=== PATIENT | male | born 1980 | race Caucasian/White ===

== ENCOUNTER 2023-01-10 12:30 | Emergency (ER) | payer BC, OTHER, SELFPAY ==
--- NOTE | ~2023-01-10 | CT_ITS ---
Non-contrast CT scan of the Abdomen and Pelvis Clinical indication: Left flank pain Technique: 2.5 mm axial scans were obtained through the abdomen and pelvis without intravenous or or al contrast. Dose reduction technique was used on this scan by utilizing automated exposure control a nd iterative reconstruction technique. The dose-length product (DLP) was 767.26 mGy-cm. Findings: Images through the lung bases reveal no abnormalities. There is no evidence of renal or ureteral calculi. The kidneys and the ureters are nondilated. The liver, spleen, pancreas, gallbladder, and right adrenal gland appear normal. Small low-density le ft adrenal nodule is consistent with adenoma. There is no aortic aneurysm. There is no evidence of bowel obstruction. Normal appendix. Images through the pelvis were performed. There is no evidence of ascites or lymphadenopathy. Urinary bladder unremarkable. Prostate gland and seminal vesicles are unremarkable. Bilateral L5 pars intera rticularis defects are present, with 9 mm anterolisthesis of L5 over S1. Impression: No acute abnormality. Bilateral L5 pars interarticularis defects, with 9 mm anterolisthesis of L5 over S1. Reviewed, dictated and finalized at [facility]. Impression: No acute abnormality. Bilateral L5 pars interarticularis defects, with 9 mm anterolisthesis of L5 ove r S1.
[2023-01-10 12:33] VITALS: BP 133/63; PULSE 60; RESP 18; TEMP 36.4; O2SAT 98
--- NOTE | 2023-01-10 12:49 | ED.BACK ---
HPI - Back Pain/Injury General Chief Complaint: Back Pain/Injury Stated Complaint: sent from with flank pain Time Seen by Provider: 01/10/23 12:35 History of Present Illness HPI Narrative: 42-year-old male presents to the emergency room for evaluation of left flank pain. Patient states last night he began experiencing left flank pain that was worse with movement. Denies any difficulty urinating. Denies nausea. No history of kidney stones. Related Data Allergies Allergy/AdvReac Type Severity Reaction Status Date / Time doxycycline Allergy Stopped Verified 01/10/23 12:53 Breathing Review of Systems Review of Systems: CONSTITUTIONAL: Denies fever, chills, or sweats. EYES: Denies visual changes, redness, or discharge. ENT: Denies rhinorrhea, congestion, sore throat, or otalgia. CARDIOVASCULAR: Denies chest pain, palpitations, or edema. RESPIRATORY: Denies cough or dyspnea. GASTROINTESTINAL: Reports flank pain GENITOURINARY: Denies dysuria or hematuria. SKIN: Denies rash or itching. MUSCULOSKELETAL: Denies back pain, joint pain, or myalgia. NEUROLOGIC: Denies headache, numbness, dizziness, or weakness. PSYCHIATRIC: Denies anxiety or depression. Exam Narrative: GENERAL: Well-appearing, well-nourished, no physical limitations, and in no acute distress. HEAD: Normocephalic, atraumatic. EYES: Conjunctivae normal, PERRLA and EOMI. CHEST: Clear to auscultation. No respiratory distress. No wheezes rales or rhonchi. HEART: Regular rate and rhythm. No murmur heard. Normal peripheral pulses. ABDOMEN: Soft, nontender, nondistended, normal active bowel sounds. BACK: left CVA tenderness; No cervical/thoracic/lumbar tenderness, step-offs, bony abnormality; FROM EXTREMITIES: Normal range of motion. No edema. No clubbing or cyanosis SKIN: Warm, dry, no rash. No noted wounds NEURO: No focal deficits. Alert and oriented x3. MAEW. CN's II-XI intact bilaterally, normal gait PSYCH: Cooperative. Normal mood and affect. Course Vital Signs Vital signs: Vital Signs Temperature 36.4 C 01/10/23 12:33 Pulse Rate 60 01/10/23 12:33 Respiratory Rate 18 01/10/23 12:33 Blood Pressure 133/63 01/10/23 12:33 Pulse Oximetry 98 01/10/23 12:33 Oxygen Delivery Room Air 01/10/23 12:33 Temperature 36.4 C 01/10/23 12:33 Pulse Rate 60 01/10/23 12:33 Respiratory Rate 18 01/10/23 12:33 Blood Pressure 133/63 01/10/23 12:33 Pulse Oximetry 98 01/10/23 12:33 Oxygen Delivery Room Air 01/10/23 12:33 MDM - Back Pain/Injury MDM Narrative Medical decision making narrative: 42-year-old male presented emergency room for evaluation of left flank pain. CT scan shows no evidence of urolithiasis. Urine and lab studies are unremarkable. Patient likely experiencing muscle spasms in the left lower back. Lab Data 01/10/23 12:48 01/10/23 12:48 Labs: Lab Results 01/10/23 01/10/23 Range/Units 12:48 13:40 WBC 8.3 (4.5-10.0) K/mm3 RBC 5.43 (4.6-6.20) M/mm3 Hgb 16.1 (14.0-18.0) g/dL Hct 45.0 (42.0-52.0) % MCV 82.9 (80-100) fl MCH 29.7 (26-34) pg MCHC 35.8 (32-36) g/dl RDW 11.9 (11.5-14.5) % Plt Count 246 (150-375) k/mm3 MPV 10.5 H (7.4-10.4) fl Immature Gran % (Auto) 0.1 (0-0.5) % Neut % (Auto) 60.9 (45.5-73.1) % Lymph % (Auto) 30.0 (18.3-44.2) % [place] % (Auto) 5.4 (2.6-8.5) % Eos % (Auto) 3.0 (0-4.4) % Baso % (Auto) 0.6 (0.2-1.2) % Lymph # (Auto) 2.49 (0.9-3.2) K/mm3 [place] # (Auto) 0.5 (0.1-0.6) K/mm3 Eos # (Auto) 0.3 (0-0.3) K/mm3 Baso # (Auto) 0.1 (0.0-0.1) K/mm3 Abs Immat Gran (auto) 0.01 (0.00-0.031) K/mm3 Absolute Neuts (auto) 5.1 (1.3-6.7) K/mm3 Absolute Nucleated RBC 0.0 (0.0-0.012) K/mm3 Nucleated RBC % 0.0 (0.0-0.2) % Sodium 138 (137-145) mmol/L Potassium 3.9 (3.4-5.0) mmol/L Chloride 102 (98-107) mmol/L Carbon Dioxide 29 (22-30) mmol/L Anion Gap 7 L
[2023-01-10] MEDS: SODIUM CHLORIDE 0.9% IV 1,000 ML 999 ML IV CONT (12:55)
[2023-01-10 12:59] LABS: Basophils Absolute Auto 0.1 K/mm3 (0.0-0.1); Basophils Percent Auto 0.6 % (0.2-1.2); Eosinophils Absolute Auto 0.3 K/mm3 (0-0.3); Hemoglobin 16.1 g/dL (14.0-18.0); Immature Granulocyte Absolute 0.01 K/mm3 (0.00-0.031); Immature Granulocyte Percent A 0.1 % (0-0.5); Lymphocytes Absolute Auto 2.49 K/mm3 (0.9-3.2); Mean Corpuscular HGB Conc 35.8 g/dl (32-36); Mean Corpuscular Hemoglobin 29.7 pg (26-34); Mean Corpuscular Volume 82.9 fl (80-100); Mean Platelet Volume 10.5 fl (7.4-10.4); Monocytes Absolute Auto 0.5 K/mm3 (0.1-0.6); Monocytes Percent Auto 5.4 % (2.6-8.5); Neutrophils Absolute Auto 5.1 K/mm3 (1.3-6.7); Neutrophils Percent Auto 60.9 % (45.5-73.1); Platelet Count Result 246 k/mm3 (150-375); Red Blood Count 5.43 M/mm3 (4.6-6.20); Red Cell Distribution Width 11.9 % (11.5-14.5); White Blood Count 8.3 K/mm3 (4.5-10.0)
[2023-01-10 13:11] LABS: Alanine Aminotransferase 21 U/L (6-50); Albumin Level 4.7 g/dL (3.5-5.1); Alkaline Phosphatase 60 U/L (38-126); Anion Gap 7 mmol/L (8-16); Aspartate Amino Transferase 26 U/L (17-59); Bilirubin,Total 0.7 mg/dL (0.2-1.3); Blood Urea Nitrogen 17 mg/dL (9-20); Calcium 9.6 mg/dL (8.4-10.2); Carbon Dioxide 29 mmol/L (22-30); Chloride 102 mmol/L (98-107); Estimated CRCL calculation 83 ml/min; Estimated Glomerular Filt Rate > 60; Glucose 107 mg/dL (65-110); Potassium 3.9 mmol/L (3.4-5.0); Sodium 138 mmol/L (137-145)
[2023-01-10 13:47] LABS: Appearance Urine Clear (Clear); Bilirubin Urine Negative (Negative); Blood Urine Negative (Negative); Color Urine Yellow (Yellow); Glucose Urine UA Negative (Negative); Ketones Urine Negative (Negative); Leukocyte Esterase Ur Negative LEU/UL (Negative); Nitrate Urine Negative (Negative); Protein Urine Negative (Negative); Specific Grav Ur 1.007 (1.001-1.035); Urobilinogen Urine 0.2 mg/dL (<2.0)
[2023-01-10 14:00] LABS: Add Urine Microscopic? NO
== END 2023-01-10 14:02 | disposition home or self-care (01) ==
PROVIDERS: Emergency Provider Nurse Practitioner Family
DX: S39.012A Strain of muscle, fascia and tendon of lower back, initial encounter (principal); M62.830 Muscle spasm of back; X58.XXXA Exposure to other specified factors, initial encounter
CPT/HCPCS: 36415; 74176; 80053; 81003; 85025; 96360; 99284; J7030

== ENCOUNTER 2023-07-08 07:42 | Emergency (ER) | payer OTHER, SELFPAY ==
[2023-07-08 07:55] VITALS: BP 127/77; PULSE 57; RESP 16; TEMP 36.6; O2SAT 97
--- NOTE | 2023-07-08 09:36 | ED.GENADULT ---
HPI - General Adult General Chief complaint: Skin/Abscess/Foreign Body Stated complaint: toe infection Time Seen by Provider: 07/08/23 08:09 History of Present Illness HPI narrative: 42-year-old male presenting to the emergency department for evaluation an injury to his right great toe. Patient states he was moving a heavy supra sure that struck his toe and lifted the toenail. [facility]. Patient states he has had some. Discharge from the wound but that since starting the antibiotic it has become serosanguineous. Patient was told to be evaluated when he returned home so patient presented to the emergency department for evaluation. Related Data Allergies Allergy/AdvReac Type Severity Reaction Status Date / Time atovaquone [From Malarone] Allergy Hives Verified 07/08/23 07:59 doxycycline Allergy Stopped Verified 07/08/23 07:59 Breathing proguanil [From Malarone] Allergy Hives Verified 07/08/23 07:59 Review of Systems Review of Systems: All systems reviewed & are unremarkable except as noted in HPI and below Exam Narrative: APPEARANCE: Well appearing, no pain, no distress, well-nourished. HEAD: normocephalic, atraumatic. EYES: PERRLA/EOMI, conjunctivae clear. NOSE: Normal no drainage EARS:TMS clear with good light reflex. THROAT: Pharynx clear, no exudate. NECK: Supple. No adenopathy, no masses. RESPIRATORY: Airway patent, respirations nonlabored. Clear to auscultation bilaterally, no rales, rhonchi, wheezing. CARDIOVASCULAR: Regular rate and rhythm without murmurs rubs or gallops. ABDOMINAL: Soft, nontender, nondistended, normal bowel sounds MUSCULOSKELETAL: Moves all extremities. Strength/ROM intact, No edema, No calf tenderness. NEURO: Alert. Cranial nerves II through XII intact. Good gait. Good coordination SKIN: Right great toenail is partially attached but in place. Discoloration from prior approval infection, no significant cellulitis, no purulent discharge. Course Course Emergency Course: Patient was updated on wound care and encouraged to follow up with Podiatry Vital Signs Vital signs: Vital Signs Temperature 97.9 F 07/08/23 07:55 Pulse Rate 57 L 07/08/23 07:55 Respiratory Rate 16 07/08/23 07:55 Blood Pressure 127/77 07/08/23 07:55 Pulse Oximetry 97 07/08/23 07:55 Temperature 97.9 F 07/08/23 07:55 Pulse Rate 57 L 07/08/23 07:55 Respiratory Rate 16 07/08/23 07:55 Blood Pressure 127/77 07/08/23 07:55 Pulse Oximetry 97 07/08/23 07:55 Medical Decision Making MDM Narrative Medical decision making narrative: 42-year-old male present to the emergency department for evaluation for a injury to his great toe. No evidence of the no evidence of a subungual hematoma, no significant evidence of cellulitis, patient does have a fungal infection of the toe. Patient was switched from amoxicillin to Keflex and encouraged of close follow-up with Podiatry. Differential Diagnosis Differential Diagnosis: Cellulitis, toenail avulsion, fungal infection, subungual hematoma Vital Signs Vital Signs: Vital Signs Temperature 97.9 F 07/08/23 07:55 Pulse Rate 57 L 07/08/23 07:55 Respiratory Rate 16 07/08/23 07:55 Blood Pressure 127/77 07/08/23 07:55 Pulse Oximetry 97 07/08/23 07:55 Temperature 97.9 F 07/08/23 07:55 Pulse Rate 57 L 07/08/23 07:55 Respiratory Rate 16 07/08/23 07:55 Blood Pressure 127/77 07/08/23 07:55 Pulse Oximetry 97 07/08/23 07:55 Discharge Plan Discharge Clinical Impression: Crush injury of toe Patient Disposition: Home, Self-Care Condition: Stable Instructions: Antibiotic Form, Nail Avulsion (ED) Additional Instructions: Wound care as directed. Have close follow-up with Podiatry. Stop taking the amoxicillin and start taking the Keflex. If you have any worsening symptoms then please call or return to the emergency department. Prescriptions: New
[2023-07-08] MEDS: CEPHALEXIN 500 MG CAPSULE PO (09:43)
== END 2023-07-08 10:11 | disposition home or self-care (01) ==
PROVIDERS: Emergency Provider Emergency Medicine
DX: S97.111D Crushing injury of right great toe, subsequent encounter (principal); B35.3 Tinea pedis; W22.8XXD Striking against or struck by other objects, subsequent encounter
CPT/HCPCS: 99283; A9270